=== PATIENT | female | born 1950 | race Caucasian/White ===

== ENCOUNTER 2024-11-23 18:30 | Emergency (ER) | payer OTHER, MEDICAID ==
[~2024-11-23] VITALS: Ht 170.2 cm; Wt 65.0 kg
--- NOTE | 2024-11-23 19:17 | ED.PDOC ---
History of Present Illness HPI Comments This is a 74-year-old female that presents with complaint of right knee pain and patella dislocation" today. Patient reports calling EMS after was having sudden onset of symptoms after twisting while standing and feeling a sense of dislocation of the kneecap. 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 Patient denies having any this, weakness, tingling, or other associated symptoms or modifying at this time. EMS stated that patient did not display any need deformity at time of arrival. Chief Complaint: Lower Extremity Time Seen by MD: 18:37 Reviewed Notes: Nurses Notes, Medications, Allergies Allergies: Coded Allergies: NO KNOWN ALLERGIES (Unverified , 11/23/24) Information Source: Patient, Emergency Med Personnel Mode of Arrival: EMS Severity: Moderate Timing: Minutes Duration: Minutes Prehospital treatment: Pain Meds Past Medical History PAST MEDICAL HISTORY: Denies Past Medical History (Other): Previous right patellar dislocations Surgical History: Denies all surgeries PSYCHOLOGY DEPARTMENT CHAIR History: No Pertinent PSYCHOLOGY DEPARTMENT CHAIR History Family History Family History: Reviewed,noncontributory to illness, No family hx of Cancer, No family hx of DM, No family hx of Heart balwinder, No family hx of HTN, No family hx ofKidney balwinder, No family hx of Liver balwinder, No family hx of Lung balwinder, No family hx of Stroke Social History Smoker: Non-Smoker Alcohol: Denies ETOH Use Drugs: Denies Drug Use Lives In: Home Constitutional: denies: chills, diaphoresis, fatigue, fever, malaise, sweats, weakness, others EENTM: denies: blurred vision, double vision, ear bleeding, ear discharge, ear drainage, ear pain, ear ringing, eye pain, eye redness, hearing loss, mouth pain, mouth swelling, nasal discharge, nose bleeding, nose congestion, nose pain, photophobia, tearing, throat pain, throat swelling, voice changes, others Respiratory: denies: cough, hemoptysis, orthopnea, SOB at rest, shortness of breath, SOB with excertion, stridor, wheezing, others Cardiovascular: denies: chest pain, dizzy spells, diaphoresis, Dyspnea on exertion, edema, irregular heart beat, left arm pain, lightheadedness, palpitations, PND, syncope, others Gastrointestinal: denies: abdomen distended, abdominal pain, blood streaked bowels, constipated, diarrhea, dysphagia, difficulty swallowing, hematemesis, melena, nausea, poor appetite, poor fluid intake, rectal bleeding, rectal pain, vomiting, others Genitourinary: denies: abnormal vagina bleeding, burning, dyspareunia, dysuria, flank pain, frequency, hematuria, incontinence, pain, , vagina discharge, urgency, others Neurological: denies: dizziness, fainting, headache, left sided numbness, left sided weakness, numbness, paresthesia, pre-existing deficit, right sided numbness, right sided weakness, seizure, speech problems, tingling, tremors, weakness, others Musculoskeletal: reports: others (Right knee pain); denies: back pain, gout, joint pain, joint swelling, muscle pain, muscle stiffness, neck pain Integumetry: denies: bruises, change in color, change in hair/nails, dryness, laceration, lesions, lumps, rash, wounds, others Allergic/Immunocompromised: denies: Difficulty Healing, Frequent Infections, Hives, Itching, others Hematologic/Lymphatic: denies: anemia, blood clots, easy bleeding, easy bruising, swollen glands, others Endocrine: denies: excessive hunger, excessive sweating, excessive thirst, excessive urination, flushing, intolerance to cold, intolerance to heat, unexplained weight gain, unexplained weight loss, others Psychiatric: denies: anxiety, bipolar disorder, depression, hopeless, panic disorder, schizophrenia, sleepless, suicidal, others All Other Systems: Reviewed and Negative (As per HPI) Physical Exam General Appearance: Moderate Distress ([id number] distress due to knee pain concerns.), Normal HEENT: Normal ENT Inspection, Pharynx Normal, TMs Normal Neck: Full Range of Motion, Non-Tender, Normal, Normal Inspection Respiratory: Chest Non-Tender, Lungs Clear, No Accessory Muscle Use, No Respiratory Distress, Normal Breath Sounds Cardiovascular: No Edema, No JVD, No Murmur, No Gallop, Normal Peripheral Pulses, Regular Rate/Rhythm Breast Exam: Deferred Gastrointestinal: No Pulsatile Mass, Normal Bowel Sounds, Soft Genitalia: Deferred Pelvic: Deferred Rectal: Deferred Extremities: Other (Relatively unremarkable right knee evaluation. Tenderness to palpation without patellar dislocation. No drawer sign. Patient's anatomical positioning was as expected.) Neurologic: Alert, No Motor Deficits, Normal Affect, Normal Mood, No Sensory Deficits Cerebellar Function: Normal Reflexes: Normal Skin: Dry, Normal Color, Warm Lymphatic: No Adenopathy Was a procedure done? Was a procedure done?: No Differential Dx Considerations may include: Dislocations, fractures, contusion, musculoskeletal pain, among others. X-Ray, Labs, Meds, VS Vital Signs Date Time Temp Pulse Resp B/P (MAP) Pulse Ox O2 Delivery O2 Flow Rate FiO2 11/23/24 18:40 97.6 73 18 176/86 (116) 95 97.6 X-Ray, Labs, Meds, VS Comment All studies performed the ED were evaluated by me personally. Imaging studies were unremarkable for any dislocation or fractures. Patient appears to have relocated her patellar dislocation. Advised patient follow up with primary care provider for continued evaluation and management. Time of 1ST Reevaluation: 20:16 Reevaluation 1ST: Improved Consultation: PCP Patient Education/Counseling: Diagnosis, Treatment Family Education/Counseling: Diagnosis, Treatment, No Family Present Departure 1 Departure Time of Disposition: 20:17 Impression: Primary Impression: Knee pain Disposition: HOME / SELF CARE / HOMELESS Condition: Stable Additional Instructions: Advised patient utilize medication as needed for pain relief. Patient should follow up with the primary care provider for discussions related to her chronic patellar dislocation concerns. e-Prescriptions Ibuprofen Micronized (Ibuprofen) 800 Mg Tab 800 MG PO Q8HP PRN, #20 TAB Prov: YVON MIRANDA 11/23/24 Discharged With: Self, Friend Critical Care Note Critical Care Time?: No Stability Stability form required: No Heart Score Heart Score: Heart Score Response (Comments) Value History N/A 0 EKG N/A 0 Age N/A 0 Risk Factors N/A 0 Troponin N/A 0 Total 0 I personally scribed for VYON MIRANDA PAC ([email or web address]) on 11/23/24 at 19:17. Electronically submitted by Spencer Kitchen ([email or web address]). YVON MIRANDA PAC Nov 23, 2024 19:17
--- NOTE | 2024-11-23 20:04 | DVH ---
CLINICAL INDICATION: Dislocation TECHNIQUE: XY R KNEE 3V XRAY Comparison: None FINDINGS: No osseous or joint abnormality identified with no evidence of joint effusion, fracture, or dislocati on. Joint spaces are normal. IMPRESSION: No abnormality demonstrated.
[2024-11-23] MEDS ORDERED: IBUP-1455 PO (20:18)
[2024-11-23 21:32] VITALS: BP 117/63; PULSE 66; RESP 14; TEMP 97.7
[2024-11-23 22:10] VITALS: O2SAT 98
== END 2024-11-23 22:10 | disposition home or self-care (01) ==
LOC: EDBD 18:30 → ER 18:30
DX: M25.561 Pain in right knee (principal); Z98.890 Other specified postprocedural states
CPT/HCPCS: 73562